=== PATIENT | female | born 1980 | race Caucasian/White ===

== ENCOUNTER 2018-06-03 18:51 | Emergency (ER) | payer OTHER ==
--- NOTE | 2018-06-03 18:59 | PDOC ---
Rapid Medical Evaluation Chief Complaint: Pain Time Seen by Provider: 06/03/18 18:57 Medical Evaluation: Allergies Allergy/AdvReac Type Severity Reaction Status Date / Time aspirin Allergy Itching Verified 02/22/18 14:54 06/03/18 18:57 I have performed a brief in person evaluation of this patient. This patient presents with a CC of: abdominal pain Pt is a 37 YO female who states that he has had RUQ pain x 1-2 days. Pt had a cholecystectomy 3 months ago. PE: Skin: Clear Lungs: Clear Heart: RRR Abd: Tender in the RUQ, no guarding. MS: Moves all extremities without difficulty. Neuro: Alert and oriented Psych: Appropriate affect I have ordered the following: abd protocol The patient will proceed to the ED for further evaluation. Discharge Disposition - Diagnosis Abdominal pain Qualifiers: Abdominal location: right upper quadrant Qualified Code(s): R10.11 - Right upper quadrant pain - Referrals Referrals: Destiney White [Primary Care Provider] - - Patient Instructions - Post Discharge Activity
[2018-06-03 19:07] VITALS: TEMP 98; BMI 24.9
[2018-06-03 19:28] LABS: BASO % 1.2 % (0-2.0); EOS % 1.5 % (0-4.5); HEMATOCRIT 40.9 % (32.4-45.2); HEMOGLOBIN 13.5 GM/dL (10.7-15.3); LYMPH % 40.4 % (8-40); MEAN CELL VOLUME 84.7 fl (80-96); MEAN PLT VOLUME 7.5 fl (7.5-11.1); MONO % 7.3 % (3.8-10.2); NEUT % 49.6 % (42.8-82.8); PLATELET COUNT 349 K/MM3 (134-434); RBC 4.83 M/mm3 (3.60-5.2); RDW 13.4 % (11.6-15.6); WHITE BLOOD COUNT 5.4 K/mm3 (4.0-10.0)
[2018-06-03 19:38] LABS: URINE APPEARANCE CLEAR; URINE BILIRUBIN NEGATIVE (<2.0 mg/dL); URINE COLOR COLORLESS; URINE GLUCOSE (UA) NEGATIVE (NEGATIVE); URINE KETONE NEGATIVE (NEGATIVE); URINE LEUK ESTERASE NEGATIVE (NEGATIVE); URINE NITRITE NEGATIVE (NEGATIVE); URINE PROTEIN NEGATIVE (NEGATIVE); URINE UROBILINOGEN NEGATIVE mg/dL (0.2-1.0)
[2018-06-03 19:39] LABS: HCG,QUALITATIVE URINE Negative
--- NOTE | 2018-06-03 20:20 | PDOC ---
History of Present Illness - General Chief Complaint: Pain Stated Complaint: RIGHT SIDE PAIN Time Seen by Provider: 06/03/18 18:57 - History of Present Illness Initial Comments: 06/03/18 20:59 The patient is a 37 year old female who presents to our ED c/o 2 day h/o abdominal pain. Pain is sharp, 10/10 initially intermittent but for the last few hours it has been constant. No association with breathing, movement, bowel movements. Denies any associated nausea/vomiting, diarrhea/constipation, dysuria /hematuria. Tolerating PO intake. Last BM this morning was watery. Notes she was evaluated by her PMD, Dr. White, earlier today and told to come to the ED for further evaluation. States she had a cholecystectomy in Summer 2017 and she has had alternating diarrhea/constipation since that time. Patient is currently on her menstrual cycle The patient denies chest pain, shortness of breath, headache and dizziness. Denies leg swelling, diaphoresis, fever, chills, diarrhea and constipation. Denies dysuria, frequency, urgency and hematuria. Allergy: ASA (Hives) Surgical: Cholecystectomy Social: denies toxic habits PMD: Dr. White As per EMR, patient was last evaluated in our ED in 01/2018 at which time she was diagnosed with cholecystitis and admitted for cholecystectomy. Past History - Past Medical History Allergies/Adverse Reactions: Allergies Allergy/AdvReac Type Severity Reaction Status Date / Time aspirin Allergy Itching Verified 06/03/18 19:00 Home Medications: Ambulatory Orders NK [No Known Home Medication] 06/03/18 Cardiac Disorders: No COPD: No DVT: No Diabetes: No GI Disorders: No Disorders: No HTN: No - Surgical History Abdominal Surgery: (Tummy tuck) Cholecystectomy: Yes - Suicide/Smoking/Psychosocial Hx Smoking History: Never smoked Have you smoked in the past 12 months: No Hx Alcohol Use: No Drug/Substance Use Hx: No Substance Use Type: None Review of Systems - Review of Systems Constitutional: Yes: Fever. No: Chills Respiratory: No: Cough, Shortness of Breath Cardiac (ROS): No: Chest Pain, Lightheadedness, Palpitations, Syncope ABD/GI: Yes: Abdominal cramping. No: Constipated, Diarrhea, Nausea, Vomiting : No: Burning, Dysuria *Physical Exam - Vital Signs Last Vital Signs Temp Pulse Resp BP Pulse Ox 98 F 81 18 152/82 99 06/03/18 18:56 06/03/18 18:56 06/03/18 18:56 06/03/18 18:56 06/03/18 18:56 - Physical Exam General Appearance: Yes: Nourished, Appropriately Dressed HEENT: positive: Normal Voice, Hearing Grossly Normal Neck: positive: Trachea midline, Supple Respiratory/Chest: positive: Lungs Clear, Normal Breath Sounds Cardiovascular: positive: S1, S2. negative: JVD Gastrointestinal/Abdominal: positive: Other (Hyperactive BS, RMQ TTP, Suprapubic TTP) Musculoskeletal: negative: CVA Tenderness (R), CVA Tenderness (L) Extremity: positive: Normal Capillary Refill, Normal Inspection Integumentary: positive: Normal Color, Dry, Warm Neurologic: positive: Fully Oriented, Alert ED Treatment Course - LABORATORY CBC & Chemistry Diagram: 06/03/18 19:19 06/03/18 20:45 - ADDITIONAL ORDERS Additional order review: Laboratory Results 06/03/18 06/03/18 19:19 19:19 Sodium Cancelled Potassium Cancelled Chloride Cancelled Carbon Dioxide Cancelled Anion Gap Cancelled BUN Cancelled Creatinine Cancelled Creat Clearance w eGFR Cancelled Random Glucose Cancelled Calcium Cancelled Total Bilirubin Cancelled AST Cancelled ALT Cancelled Alkaline Phosphatase Cancelled Total Protein Cancelled Albumin Cancelled Lipase Cancelled Urine Color Colorless Urine Appearance Clear Urine pH 6.0 Ur Specific Lutz 1.003 L Urine Protein Negative Urine Glucose (UA) Negative Urine Ketones Negative Urine Blood Negative Urine Nitrite Negative Urine Bilirubin Negative Urine Urobilinogen Negative Ur Leukocyte Esterase Negative Urine HCG, Qual Negative 06/03/18 19:19 RBC 4.83 MCV 84.7 MCHC 33.0 RDW 13.4 MPV 7.5 Neutrophils % 49.6 D Lymphocytes % 40.4 H D Monocytes % 7.3 Eosinophils % 1.5 D Basophils % 1.2 Medical Decision Making - Medical Decision Making 06/03/18 21:02 37 year old female, abdominal pain. Suprapubic, R middle quadrant tenderness. DDx includes: bilary colic (s/p goldie), pancreatitis, early appendicitis, gastritis. Will obtain belly labs, CT abdomen, Urine , UA/UC. Reassess. Urine negative No leukocytosis No electrolyte derangements. 06/04/18 01:22 CT scan negative Repeat belly exam shows mild TTP on lateral RLQ Patient offered obs admission given continuing symptoms, however states she wishes to go home. Patient given copy of return precautions, copy of CT scan and discharged home. I discussed the physical exam findings, ancillary test results and final diagnoses with the patient. I answered all of the patient's questions. The patient was satisfied with the care received and felt comfortable with the discharge plan and treatment plan. The patient will return to the Emergency Department with any new, persistent or worsening symptoms. *DC/Admit/Observation/Transfer Diagnosis at time of Disposition: Abdominal pain Qualifiers: Abdominal location: right upper quadrant Qualified Code(s): R10.11 - Right upper quadrant pain - Discharge Dispostion Disposition: HOME Condition at time of disposition: Good Decision to Admit order: No - Referrals Referrals: Destiney White [Primary Care Provider] - - Patient Instructions Printed Discharge Instructions: DI for Abdominal Pain-Adult Additional Instructions: You were evaluated today for your abdominal pain. Your labs and cat scan showed no concerning findings. At this time you are safe for discharge home. Please follow-up with your primary care doctor. We have given you a copy of your cat scan, take this with you to your doctor's appointment. Return to the Emergency Department for any new/worsening/concerning symptoms. Fuiste evaluado hoy por tu dolor abdominal. Krista anlisis de laboratorio y gianni no mostraron resultados preocupantes. En armida momento usted est seguro para el alex del hogar. Por favor palmira un seguimiento con so mdico de atencin primaria. Le hemos entregado ceferino copia de so escner de gianni, llvela con usted a la dino con so mdico. Regrese al Departamento de Emergencias para cualquier sntoma nuevo / que empeora / relacionado. Print Language: MARSHALLESE - Post Discharge Activity
[2018-06-03] MEDS ORDERED: SODIUM CHLORIDE 0.9% 500 ML INFUS.BAG IV ONE (21:10)
[2018-06-03 22:01] LABS: ALBUMIN 3.6 g/dl (3.4-5.0); ALK PHOS 68 U/L (45-117); ANION GAP 7 MMOL/L (8-16); BILIRUBIN,TOTAL 0.2 mg/dL (0.2-1); BLOOD UREA NITROGEN 12 mg/dL (7-18); CHLORIDE 105 mmol/L (98-107); CO2 27 mmol/L (21-32); CREATININE 0.8 mg/dL (0.55-1.3); GLUCOSE,RANDOM 95 mg/dL (74-106); LIPASE 135 U/L (73-393); POTASSIUM 4.1 mmol/L (3.5-5.1); SGOT/AST 28 U/L (15-37); SGPT/ALT 65 U/L (13-61); SODIUM 139 mmol/L (136-145); TOT PROT 7.2 g/dl (6.4-8.2)
[2018-06-03] MEDS ORDERED: morphine CARPU-JECT 2 MG/1 ML DISP.SYRIN IVPUSH ONE (23:41)
[2018-06-04] MEDS ORDERED: MORPHINE SULFATE 2 MG/ML VIAL ONE (00:28)
[2018-06-04 01:35] VITALS: BP 138/76; PULSE 76
--- NOTE | 2018-06-04 01:46 | PDOC ---
Attending Attestation - Resident Resident Name: Allison Boucher - ED Attending Attestation I have performed the following: I have examined & evaluated the patient, The case was reviewed & discussed with the resident, I agree w/resident's findings & plan, Exceptions are as noted - HPI HPI: 06/04/18 01:40 The patient is a 37 year old female, with no significant past medical history, who presents to the emergency department with 2 days of RUQ abdominal pain. She describes her pain as a 6/10, sharp, right sided pain radiating around to her back. She saw her primary care provider today and since her exam the pain has become constant prompting her to come to the ED. She states the pain is different from when she had her GB removed. Pt currently on her period, denies vaginal DC. She is sexually active only with her . She denies any worsening or alleviating factors. She denies recent fevers, chills, headache or dizziness. She denies recent nausea, vomit, diarrhea or constipation. She denies recent dysuria, frequency, urgency or hematuria. She denies recent chest pain or shortness of breath. Denies trauma. Allergies: NKA Past surgical history: Cholecystectomy (01/2018). Social history: No reported alcohol, drug, or cigarette use. PCP: Dr. White - Physicial Exam PE: 06/04/18 01:43 GENERAL: Awake, alert, and fully oriented, in no acute distress. Resting comfortably on stretcher reading her phone EYES: PERRLA, EOMI, sclera anicteric, conjunctiva clear ENT: Oropharynx clear without exudates. Moist mucosa NECK: Normal ROM, supple LUNGS: Breath sounds equal, clear to auscultation bilaterally. No wheezes, and no crackles HEART: Regular rate and rhythm, normal S1 and S2, no murmurs, rubs or gallops ABDOMEN: Soft, nontender, normoactive bowel sounds. No guarding, no rebound. No masses. Neg garcia's sign. No CVAT EXTREMITIES: Normal range of motion, no edema. No clubbing or cyanosis. No cords , erythema, or tenderness NEUROLOGICAL: Normal speech, cranial nerves intact, 5/5 strength in all 4 extremities, normal sensation to light touch in all 4 extremities, normal gait SKIN: Warm, Dry, normal turgor, no rashes or lesions noted over areas of pain - Medical Decision Making 06/04/18 01:47 37yo F hx cholecystectomy, ?appendectomy (pt can not remember) p/w 2 days of RUQ pain. Vitals wnl. Pt is well appearing, with no ttp on abd exam. Given report of pain, and initial tenderness on Dr. Boucher's exam, a CT was ordered to look for evidence of retained stone or other acute pathology. CT negative for acute pathology. Labs and UA wnl. UPT neg. Pt is very well appearing with rpt abd exam benign. Tolerating PO. She wishes to go home. REturn precautions given, pt to see her PMD within 1-2 days. I discussed the physical exam findings, ancillary test results and final diagnoses with the patient. I answered all of the patient's questions. The patient was satisfied with the care received and felt comfortable with the discharge plan and treatment plan. The patient will call their primary care physician within 24 hours to arrange follow-up and will return to the Emergency Department with any new, persistent or worsening symptoms.
== END 2018-06-04 01:35 | disposition home or self-care (01) ==
LOC: JER 18:51
PROC: 3E033NZ Introduction of Analgesics, Hypnotics, Sedatives into Peripheral Vein, Percutaneous Approach (ICD-10-PCS; principal; 2018-06-03)
DX: R10.11 Right upper quadrant pain (principal); Z90.49 Acquired absence of other specified parts of digestive tract
CPT/HCPCS: 36415; 74176-TC; 80053; 81003; 83690; 84703; 85025; 96374; 99283-25

== ENCOUNTER 2019-02-13 13:33 | Emergency (ER) | payer OTHER ==
--- NOTE | 2019-02-13 13:47 | PDOC ---
Rapid Medical Evaluation Time Seen by Provider: 02/13/19 13:42 Medical Evaluation: Allergies Allergy/AdvReac Type Severity Reaction Status Date / Time aspirin Allergy Itching Verified 06/03/18 19:00 02/13/19 13:43 I have performed a brief in-person evaluation of this patient The patient presents with a chief complaint of:GIL and abd pain Pertinent physical exam findings:pastora uncomfortable I have ordered the following:labs The patient will proceed to the ED for further evaluation. Discharge Disposition - Diagnosis Headache Qualifiers: Headache type: unspecified Headache chronicity pattern: unspecified pattern Intractability: not intractable Qualified Code(s): R51 - Headache Abdominal pain Qualifiers: Abdominal location: unspecified location Qualified Code(s): R10.9 - Unspecified abdominal pain - Discharge Dispostion Disposition: HOME Condition at time of disposition: Good - Referrals Referrals: Vaughn Solorio MD [Staff Physician] - Destiney White [Primary Care Provider] - - Patient Instructions Printed Discharge Instructions: DI for Migraine, DI for Headache Additional Instructions: you were seen for your headache. please use tylenol as prescribed for pain relief. please see the neurologist referred to you within 1 week for follow up care and management. thank you. please return if you have fevers, confusion, and worsening headaches with unsteady walking. thank you. - Post Discharge Activity
[2019-02-13 13:50] VITALS: BP 135/80; PULSE 70; TEMP 97.5; BMI 28.3
[2019-02-13] MEDS ORDERED: KETOROLAC TROMETHAMINE 30 MG/1 ML VIAL IVPUSH ONE (15:27)
[2019-02-13] MEDS ORDERED: METOCLOPRAMIDE HCL INJECTION 10 MG/2 ML VIAL IVPB ONE (15:27)
--- NOTE | 2019-02-13 15:43 | PDOC ---
History of Present Illness - General Chief Complaint: Pain Stated Complaint: HEADACHE Time Seen by Provider: 02/13/19 13:42 History Source: Patient Exam Limitations: No Limitations Past History - Past Medical History Allergies/Adverse Reactions: Allergies Allergy/AdvReac Type Severity Reaction Status Date / Time aspirin Allergy Itching Verified 06/03/18 19:00 Home Medications: Ambulatory Orders NK [No Known Home Medication] 06/03/18 Cardiac Disorders: No COPD: No DVT: No Diabetes: No GI Disorders: No Disorders: No HTN: No - Surgical History Abdominal Surgery: (Tummy tuck) Cholecystectomy: Yes - Suicide/Smoking/Psychosocial Hx Smoking History: Never smoked Have you smoked in the past 12 months: No Hx Alcohol Use: No Drug/Substance Use Hx: No Substance Use Type: None *Physical Exam - Vital Signs Last Vital Signs Temp Pulse Resp BP Pulse Ox 97.5 F L 70 20 135/80 100 02/13/19 13:44 02/13/19 13:44 02/13/19 13:44 02/13/19 13:44 02/13/19 13:44 ED Treatment Course - LABORATORY CBC & Chemistry Diagram: 02/13/19 16:10 02/13/19 16:10 *DC/Admit/Observation/Transfer Diagnosis at time of Disposition: Headache Qualifiers: Headache type: unspecified Headache chronicity pattern: unspecified pattern Intractability: not intractable Qualified Code(s): R51 - Headache Abdominal pain Qualifiers: Abdominal location: unspecified location Qualified Code(s): R10.9 - Unspecified abdominal pain - Discharge Dispostion Disposition: HOME Decision to Admit order: No - Referrals Referrals: Destiney White [Primary Care Provider] - Vaughn Solorio MD [Staff Physician] - - Patient Instructions Printed Discharge Instructions: DI for Migraine, DI for Headache Additional Instructions: you were seen for your headache. please use tylenol as prescribed for pain relief. please see the neurologist referred to you within 1 week for follow up care and management. thank you. please return if you have fevers, confusion, and worsening headaches with unsteady walking. thank you. - Post Discharge Activity
--- NOTE | 2019-02-13 15:55 | PDOC ---
Documentation entered by Bonita Lugo SCRIBE, acting as scribe for April Colon MD. April Colon MD: This documentation has been prepared by the Brittney valentin Brenda, SCRIBE, under my direction and personally reviewed by me in its entirety. I confirm that the documentation accurately reflects all work, treatment, procedures, and medical decision making performed by me. Attending Attestation - Resident Resident Name: Aba Raya - ED Attending Attestation I have performed the following: I have examined & evaluated the patient, The case was reviewed & discussed with the resident, I agree w/resident's findings & plan, Exceptions are as noted - HPI HPI: 02/13/19 15:26 The patient is a 38 year old female, with a significant PMH of migraines, who presents to the emergency department with a consistent headache and abdominal pain. As per patient the headache could be due to stress, she notes that the headache is familiar and of the same quality as migraines. The patient also complains of bilateral lower quadrant pain. She notes that her last menstrual period ended on February 03, but has noticed some spotting. Of note, 18 year old son is currently in the ER as well. The patient denies chest pain, shortness of breath, headache and dizziness. Denies fever, chills, nausea, vomiting, diarrhea and constipation. Denies dysuria, frequency, urgency. Allergies: Aspirin Past surgical history: Not reported Social history: Not reported PCP: Destiney Rodney - Physicial Exam PE: GENERAL: Awake, alert, and fully oriented, in no acute distress HEAD: No signs of trauma EYES: PERRLA, EOMI, sclera anicteric, conjunctiva clear ENT: Auricles normal inspection, hearing grossly normal, nares patent, oropharynx clear without exudates. Moist mucosa NECK: Normal ROM, supple, no lymphadenopathy, JVD, or masses LUNGS: Breath sounds equal, clear to auscultation bilaterally. No wheezes, and no crackles HEART: Regular rate and rhythm, normal S1 and S2, no murmurs, rubs or gallops ABDOMEN: Soft, nontender, normoactive bowel sounds. No guarding, no rebound. No masses EXTREMITIES: Normal range of motion, no edema. No clubbing or cyanosis. No cords, erythema, or tenderness NEUROLOGICAL: Cranial nerves II through XII grossly intact. Normal speech, normal gait. Motor and sensation intact SKIN: Warm, dry, normal turgor, no rashes or lesions noted. - Medical Decision Making Pt with migraine headache, consistent with prior headaches. No red flags, no advanced imaging indicated at this time. Will treat with toradol and reglan. DC when improved.
[2019-02-13 16:18] LABS: URINE APPEARANCE CLEAR; URINE BILIRUBIN NEGATIVE (NEGATIVE); URINE COLOR YELLOW; URINE GLUCOSE (UA) NEGATIVE (NEGATIVE); URINE KETONE NEGATIVE (NEGATIVE); URINE LEUK ESTERASE NEGATIVE (NEGATIVE); URINE NITRITE NEGATIVE (NEGATIVE); URINE PROTEIN NEGATIVE (NEGATIVE); URINE UROBILINOGEN 0.2 mg/dL (0.2-1.0)
[2019-02-13 16:18] LABS: BASO % 0.7 % (0-2.0); EOS % 0.7 % (0-4.5); HEMATOCRIT 40.9 % (32.4-45.2); HEMOGLOBIN 13.4 GM/dL (10.7-15.3); LYMPH % 29.5 % (8-40); MCHC 32.8 g/dl (32.0-36.0); MEAN CELL VOLUME 85.5 fl (80-96); MEAN PLT VOLUME 7.2 fl (7.5-11.1); MONO % 7.8 % (3.8-10.2); NEUT % 61.3 % (42.8-82.8); PLATELET COUNT 328 K/MM3 (134-434); RBC 4.78 M/mm3 (3.60-5.2); RDW 14.6 % (11.6-15.6); WHITE BLOOD COUNT 5.5 K/mm3 (4.0-10.0)
[2019-02-13 16:49] LABS: ALBUMIN 3.8 g/dl (3.4-5.0); ALK PHOS 66 U/L (45-117); ANION GAP 4 MMOL/L (8-16); BILIRUBIN,TOTAL 0.5 mg/dL (0.2-1); CALCIUM 9.2 mg/dL (8.5-10.1); CHLORIDE 106 mmol/L (98-107); CO2 29 mmol/L (21-32); CREATININE 0.8 mg/dL (0.55-1.3); GLUCOSE,RANDOM 95 mg/dL (74-106); POTASSIUM 4.7 mmol/L (3.5-5.1); SGOT/AST 22 U/L (15-37); SGPT/ALT 42 U/L (13-61); SODIUM 139 mmol/L (136-145); TOT PROT 7.5 g/dl (6.4-8.2)
[2019-02-13] MEDS ORDERED: METOCLOPRAMIDE HCL INJECTION 10 MG/2 ML VIAL ONE (16:51)
[2019-02-13] MEDS ORDERED: KETOROLAC TROMETHAMINE 30 MG/1 ML VIAL ONE (16:51)
== END 2019-02-13 18:44 | disposition home or self-care (01) ==
LOC: JER 13:33
PROC: 3E033GC Introduction of Other Therapeutic Substance into Peripheral Vein, Percutaneous Approach (ICD-10-PCS; principal; 2019-02-13)
PROC: 3E0333Z Introduction of Anti-inflammatory into Peripheral Vein, Percutaneous Approach (ICD-10-PCS; 2019-02-13)
DX: G43.909 Migraine, unspecified, not intractable, without status migrainosus (principal)
CPT/HCPCS: 36415; 80053; 81003; 84702; 84703; 85025; 96374; 96375; 99281-25

== ENCOUNTER 2019-03-22 16:14 | Emergency (ER) | payer OTHER ==
[2019-03-22 16:45] VITALS: BP 148/82; PULSE 78; TEMP 98.9; BMI 24.0
[2019-03-22] MEDS ORDERED: ONDANSETRON 4 MG/2 ML VIAL IVPUSH ONE (17:14)
[2019-03-22] MEDS ORDERED: SODIUM CHLORIDE 0.9% 500 ML INFUS.BAG IV ONE (17:14)
[2019-03-22] MEDS ORDERED: METOCLOPRAMIDE HCL INJECTION 10 MG/2 ML VIAL IVPB ONE (17:17)
--- NOTE | 2019-03-22 17:26 | PDOC ---
History of Present Illness - General Chief Complaint: Vaginal Bleeding Stated Complaint: ABD PAIN Time Seen by Provider: 03/22/19 16:59 History Source: Patient, Spouse Exam Limitations: Language Barrier (mauritanian) - History of Present Illness Initial Comments: 03/22/19 17:20 Kira Sanchez is a 38y previously healthy F w suprapubic pain and vaginal bleeding. Pain came on suddenly last night. Associated spotting, nausea and 2x non bloody vomiting today. Today noted bright red blood w clots in toilet upon arrival in ED at 1600. Took total 2g tylenol today without relief. Denies fever, headache, chest pain, SOB, bowl mvmt changes. 3d ago tested positive for . Approx 50d since last menstrual period. . 1st full term emergency d/t umbilical cord wrapped around neck. 2nd complicated by similar AB pain and spotting. No OBGYN doctor Past History - Past Medical History Allergies/Adverse Reactions: Allergies Allergy/AdvReac Type Severity Reaction Status Date / Time aspirin Allergy Itching Verified 03/22/19 16:46 Home Medications: Ambulatory Orders NK [No Known Home Medication] 06/03/18 Cardiac Disorders: No COPD: No DVT: No Diabetes: No GI Disorders: No Disorders: No HTN: No - Surgical History Abdominal Surgery: (Tumyesenia de la rosack) Cholecystectomy: Yes - Suicide/Smoking/Psychosocial Hx Smoking History: Never smoked Have you smoked in the past 12 months: No Hx Alcohol Use: No Drug/Substance Use Hx: No Substance Use Type: None Review of Systems - Review of Systems Constitutional: No: Chills, Fever HEENTM: No: Eye Pain, Ear Pain, Nose Pain, Throat Pain, Mouth Pain Respiratory: No: Cough, Shortness of Breath, Wheezing Cardiac (ROS): No: Chest Pain, Palpitations, Syncope, Chest Tightness ABD/GI: Yes: Nausea, Vomiting. No: Abdominal Distended, Constipated, Diarrhea : Yes: Hematuria. No: Burning, Dysuria, Discharge, Flank Pain, Incontinence Musculoskeletal: No: Back Pain, Joint Pain, Muscle Pain, Muscle Weakness Integumentary: No: Bruising, Flushing, Lesions, Lumps Neurological: No: Headache, Numbness, Paresthesia, Seizure, Tingling, Tremors Psychiatric: No: Anxiety, Depression Endocrine: No: Excessive Sweating, Flushing, Intolerance to Cold, Intolerance to Heat Hematologic/Lymphatic: No: Anemia, Blood Clots, Easy Bleeding *Physical Exam - Vital Signs Last Vital Signs Temp Pulse Resp BP Pulse Ox 98.9 F 78 18 148/82 97 03/22/19 16:15 03/22/19 16:15 03/22/19 16:15 03/22/19 16:15 03/22/19 16:15 - Physical Exam General Appearance: Yes: Nourished, Appropriately Dressed, Moderate Distress ( discomfort ) HEENT: positive: EOMI, CHAD, Normal Voice, Hearing Grossly Normal. negative: Pale Conjunctivae, Scleral Icterus (R), Scleral Icterus (L), Nasal Congestion, Rhinorrhea Respiratory/Chest: positive: Lungs Clear, Normal Breath Sounds. negative: Chest Tender, Respiratory Distress, Crackles, Rales, Rhonchi, Stridor, Wheezing Cardiovascular: positive: Regular Rhythm, Regular Rate, S1, S2. negative: Edema , Murmur Female Pelvic Exam: positive: normal external exam, cervical os closed, normal adnexa, vaginal bleeding (gross blood in vaginal vault, no clots). negative: CMT, discharge, lesions, adnexal tenderness Gastrointestinal/Abdominal: positive: Normal Bowel Sounds, Tender (moderate tenderness to palpation suprapubic ), Flat, Soft. negative: Organomegaly, Distended, Guarding, Rebound, Hernia, Mass Musculoskeletal: positive: Normal Inspection. negative: CVA Tenderness (R), CVA Tenderness (L) Integumentary: positive: Normal Color. negative: Petechiae, Rash, Ecchymosis, Bruising Neurologic: positive: Fully Oriented, Alert, Normal Mood/Affect, Normal Response , Respond to painful stimul. negative: Sensory Deficit, Confused, Disoriented ED Treatment Course - LABORATORY CBC & Chemistry Diagram: 03/22/19 17:30 03/22/19 17:30 - RADIOLOGY Radiology Studies Ordered: Category Date Time Status <14WKS US [US] Stat Ultrasound 03/22/19 17:19 Ordered Medical Decision Making - Medical Decision Making 03/22/19 17:26 CBC CMP HCG UA coags T&S pelvic exam shows gross blood in vaginal vault, no clots, closed cervical os, no cervical motion tenderness or adnexal tenderness Given 1L NS, zofran for nausea, reglan/benadryl for pain CBC, coags normal. UA shows 3+ blood no UTI beta HCG 97 Pending US read Kira Sanchez is a 38y previously healthy F w suprapubic pain and vaginal bleeding. Likely threatened vs complete in setting of vaginal bleeding, suprapubic blood, low beta HCG 97 w 50d since LMP. Consider threatened vs viable intrauterine vs ectopic based on ultrasound read. Pelvic exam showed gross blood in vaginal vault, no clots, closed cervical os, no cervical motion tenderness or adnexal tenderness. No UTI on UA. Unlikely kidney stone or diverticulitis. Given 1L NS, zofran for nausea, reglan/benadryl for pain. Ultrasound read pending. Repeat CBC trend Hgb 815p Dispo pending US read. Signed out to the night team *DC/Admit/Observation/Transfer Diagnosis at time of Disposition: Suprapubic abdominal pain, Vaginal bleeding before 22 weeks gestation Qualifiers: Weeks of gestation: less than 8 weeks Qualified Code(s): Z3A.01 - Less than 8 weeks gestation of - Discharge Dispostion Condition at time of disposition: Fair - Referrals Referrals: Destiney White [Primary Care Provider] - - Patient Instructions - Post Discharge Activity
[2019-03-22] MEDS ORDERED: ONDANSETRON 4 MG/2 ML VIAL ONE (17:44)
[2019-03-22] MEDS ORDERED: METOCLOPRAMIDE HCL INJECTION 10 MG/2 ML VIAL ONE (17:44)
[2019-03-22 17:47] LABS: BASO % 0.8 % (0-2.0); HEMATOCRIT 43.1 % (32.4-45.2); HEMOGLOBIN 14.1 GM/dL (10.7-15.3); MCH 27.9 pg (25.7-33.7); MCHC 32.7 g/dl (32.0-36.0); MEAN CELL VOLUME 85.4 fl (80-96); MEAN PLT VOLUME 7.2 fl (7.5-11.1); MONO % 8.6 % (3.8-10.2); NEUT % 65.6 % (42.8-82.8); PLATELET COUNT 355 K/MM3 (134-434); RBC 5.05 M/mm3 (3.60-5.2); RDW 13.9 % (11.6-15.6); WHITE BLOOD COUNT 7.9 K/mm3 (4.0-10.0)
[2019-03-22 17:49] LABS: HYALINE CASTS 1 /lpf (0-8); PH,URINE 5.5 (5.0-8.0); URINE APPEARANCE CLEAR; URINE BILIRUBIN NEGATIVE (NEGATIVE); URINE COLOR YELLOW; URINE GLUCOSE (UA) NEGATIVE (NEGATIVE); URINE KETONE NEGATIVE (NEGATIVE); URINE LEUK ESTERASE NEGATIVE (NEGATIVE); URINE NITRITE NEGATIVE (NEGATIVE); URINE PROTEIN 1+ (NEGATIVE); URINE UROBILINOGEN 0.2 mg/dL (0.2-1.0); URINE WBC 1 /hpf (0-5)
[2019-03-22 18:01] LABS: INR 0.96 (0.83-1.09); PROTHROMBIN TIME (PATIENT) 11.3 SEC (9.7-13.0)
[2019-03-22 18:15] LABS: ALBUMIN 3.8 g/dl (3.4-5.0); BILIRUBIN,TOTAL 0.4 mg/dL (0.2-1); BLOOD UREA NITROGEN 9.1 mg/dL (7-18); CALCIUM 9.1 mg/dL (8.5-10.1); CREATININE 0.9 mg/dL (0.55-1.3); POTASSIUM 4.4 mmol/L (3.5-5.1)
[2019-03-22 18:35] LABS: URINE RBC 25.3 /hpf (0-4); YEAST NEGATIVE (NEGATIVE)
--- NOTE | 2019-03-22 18:59 | PDOC ---
Documentation entered by Daniela Ontiveros SCRIBE, acting as scribe for La Nena Toure MD. La Nena Toure MD: This documentation has been prepared by the cubaibe, Daniela Ontiveros SCRIBE, under my direction and personally reviewed by me in its entirety. I confirm that the documentation accurately reflects all work, treatment, procedures, and medical decision making performed by me. Attending Attestation - Resident Resident Name: Darshan Eldridge - ED Attending Attestation I have performed the following: I have examined & evaluated the patient, The case was reviewed & discussed with the resident, I agree w/resident's findings & plan, Exceptions are as noted - HPI HPI: 03/22/19 18:20 The patient is a 38-year-old female, currently (7 weeks based on LMP) with no reported past medical history presents to the emergency department with a 1-day history of vaginal spotting, which progressed into heavy vaginal bleeding with clot passing while at the ER. The patient reports associated symptoms of nausea, x2 episodes of NBNB vomiting, and midline lower abdominal pain. Denies prior or miscarriage. Denies fevers, chills, cp, sob, headahce, focal weakness/numbness, LE edema, rashes, urinary sxs. Allergies: ASA Social history: Denies history of alcohol, tobacco and recreational drug use. Surgical history: Abdominal surgery and cholecystectomy PCP: Dr. White. - Physicial Exam PE: 03/22/19 18:20 GENERAL: Awake, alert, and fully oriented, in no acute distress EYES: PERRLA, EOMI, sclera anicteric, conjunctiva clear ENT: Oropharynx clear without exudates. Moist mucosa NECK: Normal ROM, supple, no lymphadenopathy, JVD, or masses LUNGS: Breath sounds equal, clear to auscultation bilaterally. No wheezes, and no crackles HEART: Regular rate and rhythm, normal S1 and S2, no murmurs, rubs or gallops ABDOMEN: Soft, nontender, normoactive bowel sounds. No guarding, no rebound. No masses ; As per Dr. Pond's note EXTREMITIES: Normal range of motion, no edema. No clubbing or cyanosis. No cords , erythema, or tenderness BACK: No midline spinal tenderness in cervical/thoracic/lumbar region NEUROLOGICAL: Normal speech, cranial nerves intact, equal strength and sensation b/l SKIN: Warm, Dry, normal turgor, no rashes or lesions noted. - Medical Decision Making 03/22/19 17:56 38yo F approx 7 wks preg by dates presents to the ED with vaginal bleeding, initially spotting but now heaving bleeding with clots in the ED Initial vitals with elevated BP, will rpt Exam with closed os, moderate dark red blood in vault, no clots, no CMT or adnexal ttp Concern for spontaneous Pt with no OB care yet, does not have OB Plan for labs including BHCG, type and screen, as well as UA, TVUS 03/22/19 18:57 Labs wnl, hgb 14 UA with blood, likely 2/2 vag bleeding T&S+ TVUS pending Case signed out to Dr. Thomas for f/u TVUS, management/dispo
--- NOTE | 2019-03-22 19:14 | PDOC ---
*Physical Exam - Vital Signs Last Vital Signs Temp Pulse Resp BP Pulse Ox 98.9 F 78 18 148/82 97 03/22/19 16:15 03/22/19 16:15 03/22/19 16:15 03/22/19 16:15 03/22/19 16:15 ED Treatment Course - LABORATORY CBC & Chemistry Diagram: 03/22/19 17:30 03/22/19 17:30 - ADDITIONAL ORDERS Additional order review: Laboratory Results 03/22/19 03/22/19 03/22/19 17:30 17:30 17:30 PT with INR 11.30 INR 0.96 PTT (Actin FS) Sodium Potassium Chloride Carbon Dioxide Anion Gap BUN Creatinine Est GFR (CKD-EPI)AfAm Est GFR (CKD-EPI)NonAf Random Glucose Calcium Total Bilirubin AST ALT Alkaline Phosphatase Total Protein Albumin Beta HCG, Quant Urine Color Yellow Urine Appearance Clear Urine pH 5.5 Ur Specific [place] 1.003 L Urine Protein 1+ H Urine Glucose (UA) Negative Urine Ketones Negative Urine Blood 3+ H Urine Nitrite Negative Urine Bilirubin Negative Urine Urobilinogen 0.2 Ur Leukocyte Esterase Negative Urine WBC (Auto) 1 Urine RBC (Auto) 25.3 Urine Casts (Auto) 1 U Epithel Cells (Auto) 1.0 Urine Bacteria (Auto) 12.0 Urine Yeast (Auto) Negative Blood Type A POSITIVE Antibody Screen Negative 03/22/19 03/22/19 03/22/19 17:30 17:30 17:30 PT with INR INR PTT (Actin FS) 32.7 Sodium 139 Potassium 4.4 Chloride 107 Carbon Dioxide 27 Anion Gap 6 L BUN 9.1 Creatinine 0.9 Est GFR (CKD-EPI)AfAm 93.35 Est GFR (CKD-EPI)NonAf 80.54 Random Glucose 82 Calcium 9.1 Total Bilirubin 0.4 AST 27 ALT 54 Alkaline Phosphatase 75 Total Protein 8.0 Albumin 3.8 Beta HCG, Quant 97.3 Urine Color Urine Appearance Urine pH Ur Specific [place] Urine Protein Urine Glucose (UA) Urine Ketones Urine Blood Urine Nitrite Urine Bilirubin Urine Urobilinogen Ur Leukocyte Esterase Urine WBC (Auto) Urine RBC (Auto) Urine Casts (Auto) U Epithel Cells (Auto) Urine Bacteria (Auto) Urine Yeast (Auto) Blood Type Antibody Screen 03/22/19 17:30 RBC 5.05 MCV 85.4 MCHC 32.7 RDW 13.9 MPV 7.2 L Neutrophils % 65.6 Lymphocytes % 24.0 Monocytes % 8.6 Eosinophils % 1.0 Basophils % 0.8 - Medications Given in the ED: ED Medications Discontinued Medications Generic Name Dose Route Start Last Admin Trade Name Shanique PRN Reason Stop Dose Admin Diphenhydramine HCl 25 mg 03/22/19 17:17 03/22/19 17:55 Benadryl Injection - IVPB 03/22/19 17:18 25 mg ONCE ONE Administration Metoclopramide HCl 10 mg 03/22/19 17:17 03/22/19 17:55 Reglan Injection - IVPB 03/22/19 17:18 10 mg ONCE ONE Administration Ondansetron HCl 4 mg 03/22/19 17:14 03/22/19 17:55 Zofran Injection IVPUSH 03/22/19 17:15 4 mg NOW ONE Administration Sodium Chloride 1,000 ml 03/22/19 17:14 03/22/19 17:55 Normal Saline - IV 03/22/19 17:15 1,000 ml ONCE ONE Administration Medical Decision Making - Medical Decision Making 03/22/19 19:13 Patient signed out resident Dr. Eldridge In short patient is w suprapubic pain and vaginal bleeding. pending TVUS d/c for rpt beta 48 hours *DC/Admit/Observation/Transfer Diagnosis at time of Disposition: Suprapubic abdominal pain, Vaginal bleeding before 22 weeks gestation Qualifiers: Weeks of gestation: less than 8 weeks Qualified Code(s): Z3A.01 - Less than 8 weeks gestation of - Discharge Dispostion Disposition: HOME Condition at time of disposition: Fair Decision to Admit order: No - Referrals Referrals: Destiney White [Primary Care Provider] - Jose Fontenot MD [Staff Physician] - - Patient Instructions Printed Discharge Instructions: DI for Vaginal Bleeding During Additional Instructions: You were seen in the ED for complaints of vaginal bleeding in Your labs tests show a low blood test for the date of your last normal menstrual period Your ultrasound was too early to show a . You should return to the ED or your Family Doctor in 2 days for repeat blood test and imaging. Return to the ED immediately if you experience worsening abdominal pain, worsening vaginal bleeding, nausea, vomiting or fever. La vieron en el servicio de urgencias por quejas de sangrado vaginal en el embarazo. Las pruebas de laboratorio muestran un anlisis de sapna bajo en el embarazo para la fecha de jenkins ltimo perodo menstrual normal Jenkins ultrasonido fue demasiado temprano para mostrar un embarazo. Debe regresar al servicio de urgencias o a jenkins mdico de vijay en 2 anguiano para repetir los anlisis de sapna y las imgenes. Regrese al servicio de urgencias de inmediato si experimenta un empeoramiento del dolor abdominal, empeoramiento del sangrado vaginal, nuseas, vmitos o fiebre. Print Language: UPPER SORBIAN - Post Discharge Activity
== END 2019-03-22 20:42 | disposition home or self-care (01) ==
LOC: JER 16:14
PROC: 3E033GC Introduction of Other Therapeutic Substance into Peripheral Vein, Percutaneous Approach (ICD-10-PCS; principal; 2019-03-22)
PROC: 3E033GC Introduction of Other Therapeutic Substance into Peripheral Vein, Percutaneous Approach (ICD-10-PCS; 2019-03-22)
PROC: 3E033GC Introduction of Other Therapeutic Substance into Peripheral Vein, Percutaneous Approach (ICD-10-PCS; 2019-03-22)
DX: O26.891 Other specified pregnancy related conditions, first trimester (principal); O20.8 Other hemorrhage in early pregnancy; Z3A.01 Less than 8 weeks gestation of pregnancy
CPT/HCPCS: 36415; 76801-TC; 80053; 81003; 84702; 85025; 85610; 85730; 86850; 86900; 86901; 87086; 96374; 96375; 99283-25

== ENCOUNTER 2019-06-05 15:12 | Emergency (ER) | payer OTHER ==
[2019-06-05 15:39] VITALS: BP 146/86; PULSE 84; TEMP 98; BMI 24.0
--- NOTE | 2019-06-05 15:39 | PDOC ---
Rapid Medical Evaluation Medical Evaluation: Allergies Allergy/AdvReac Type Severity Reaction Status Date / Time aspirin Allergy Itching Verified 03/22/19 16:46 I have performed a brief in-person evaluation of this patient. The patient presents with a chief complaint of: c/o L eye pain, redness, tearing , FB sensation, photophobia from yesterday; was using glue to put on fake eyelash Pertinent physical exam findings: +R eye injected, JARRET BONILLA I have ordered the following: Nothing The patient will proceed to the ED for further evaluation. 06/05/19 15:35
[2019-06-05] MEDS ORDERED: FLUORESCEIN NA 1 EA STRIP OD ONE (16:41)
[2019-06-05] MEDS ORDERED: TETRACAINE 0.5% HCL 0.6ML DROPPER.BOTTLE OD ONE (16:41)
[2019-06-05] MEDS ORDERED: TETRACAINE 0.5% OPHTH SOLN 2 ML BOTTLE ONE (16:43)
--- NOTE | 2019-06-05 16:51 | PDOC ---
History of Present Illness - General Chief Complaint: Eye Problem Stated Complaint: HURT EYE Time Seen by Provider: 06/05/19 15:35 - History of Present Illness Initial Comments: 06/05/19 16:46 CHIEF COMPLAINT: eye problem HISTORY OF PRESENT ILLNESS: 38 yo F presents to [facility] with pain and irritation to left eye since yesterday. Patient states she is unsure what caused the irritation and redness to her eye but she believes it started from the glue from her eyelashes. No recent travel or sick contacts. PAST MEDICAL HISTORY: Denies past medical history FAMILY HISTORY: Denies SOCIAL HISTORY: Denies tobacco, alcohol, illicit drug use. SURGICAL HISTORY: Denies ALLERGIES: No known drug allergies REVIEW OF SYSTEMS General/Constitutional: Denies fever or chills. Denies weakness, weight change. HEENT: Pain, redness, and irritation to L eye. Denies change in vision. Denies ear pain or discharge. Denies sore throat. Cardiovascular: Denies chest pain or shortness of breath. Respiratory: Denies cough, wheezing, or hemoptysis. Gastrointestinal: Denies nausea, vomiting, diarrhea or constipation. Denies rectal bleeding. Genitourinary: Denies dysuria, frequency, or change in urination. Musculoskeletal: Denies joint or muscle swelling or pain. Denies neck or back pain. Skin and breasts: Denies rash or easy bruising. Neurologic: Denies headache, vertigo, loss of consciousness, or loss of sensation. Psychiatric: Denies depression or anxiety. PHYSICAL EXAM General Appearance: Well-appearing, appropriately dressed. No apparent distress , no intoxication. HEENT: Injected left eye, tearing, +photophobia. No globe rupture, no scleral icterus. EOMI, PERRLA, normal ENT inspection, normal voice, TMs normal, pharynx normal. No conjunctival pallor. Neck: Supple. Trachea midline. No tenderness, rigidity, carotid bruit, stridor , lymphadenopathy, or thyromegaly. Respiratory/Chest: Lungs CTAB. No shortness of breath, chest tenderness, respiratory distress, accessory muscle use. No crackles, rales, rhonchi, stridor , wheezing, dullness Cardiovascular: RRR. S1, S2. No JVD, murmur, bradycardia, tachycardia. Vascular Pulses: Dorsalis-Pedis (R): 2+, Dorsalis-Pedis (L): 2+ Gastrointestinal/Abdominal: Normal bowel sounds. Abdomen soft, non-distended. No tenderness or rebound tenderness. No organomegaly, pulsatile mass, guarding , hernia, hepatomegaly, splenomegaly. Lymphatic: No adenopathy, tenderness. Musculoskeletal/Extremities: Normal inspection. FROM of all extremities, normal capillary refill. Pelvis Stable. No CVA tenderness. No tenderness to extremities, pedal edema, swelling, erythema or deformity. Integumentary: Appropriate color, dry, warm. No cyanosis, erythema, jaundice or rash Neurologic: public safety officer II-XII intact. Fully oriented, alert. Appropriate mood/affect. Motor strength 5/5. No appreciable EOM palsy, facial droop or sensory deficit. Past History - Past Medical History Allergies/Adverse Reactions: Allergies Allergy/AdvReac Type Severity Reaction Status Date / Time aspirin Allergy Itching Verified 06/05/19 15:39 Home Medications: Ambulatory Orders Erythromycin 0.5% Eye Ointment [Erythromycin 0.5% Eye Ointment -] 1 applic OS QID #1 tube 06/05/19 Cardiac Disorders: No COPD: No DVT: No Diabetes: No GI Disorders: No Disorders: No HTN: No - Surgical History Abdominal Surgery: (Betzaida min) Cholecystectomy: Yes - Psycho Social/Smoking Cessation Hx Smoking History: Never smoked Have you smoked in the past 12 months: No Hx Alcohol Use: No Drug/Substance Use Hx: No Substance Use Type: None *Physical Exam - Vital Signs Last Vital Signs Temp Pulse Resp BP Pulse Ox 98 F 84 18 146/86 99 06/05/19 15:35 06/05/19 15:35 06/05/19 15:35 06/05/19 15:35 06/05/19 15:35 Medical Decision Making - Medical Decision Making 06/05/19 16:48 38 yo F presents to [facility] with pain and irritation to left eye since yesterday. Fluorescein stain reveals 2mm corneal abrasion over pupil. Patient denies wearing contacts. -erythromycin ointment. Advised patient to take medication as prescribed and follow up with ophthalmology within 5 days. Advised patient of signs and symptoms for return to ED. Patient verbalized understanding and agrees to plan. Discharge - Discharge Information Problems reviewed: Yes Clinical Impression/Diagnosis: Abrasion of cornea, left Qualifiers: Encounter type: initial encounter Qualified Code(s): S05.02XA - Injury of conjunctiva and corneal abrasion without foreign body, left eye, initial encounter Condition: Stable Disposition: HOME - Admission No - Additional Discharge Information Prescriptions: Erythromycin 0.5% Eye Ointment [Erythromycin 0.5% Eye Ointment -] 1 applic OS QID #1 tube - Follow up/Referral Referrals: Destiney White [Primary Care Provider] - Castillo Lara MD [Staff Physician] - - Patient Discharge Instructions Patient Printed Discharge Instructions: DI for Corneal Abrasion Additional Instructions: Please use medication as prescribed. Follow up with ophthalmology in 5 days for continued monitoring. If you develop any worsening symptoms, please return to the ER. Print Language: NEPALI - Post Discharge Activity
== END 2019-06-05 16:58 | disposition home or self-care (01) ==
LOC: JERFT 15:12
DX: S05.02XA Injury of conjunctiva and corneal abrasion without foreign body, left eye, initial encounter (principal); X58.XXXA Exposure to other specified factors, initial encounter; Y93.89 Activity, other specified; Y92.038 Other place in apartment as the place of occurrence of the external cause; Y99.8 Other external cause status
CPT/HCPCS: 99281-25

== ENCOUNTER 2020-09-02 18:00 | Inpatient (IN) | payer OTHER ==
[2020-09-02 18:36] VITALS: BMI 30.7
[2020-09-02] MEDS ORDERED: BETAMET ACET/BETAMET NA PH 30 MG/5 ML VIAL ONE (18:36)
[2020-09-02] MEDS: BETAMET ACET/BETAMET NA PH 30 MG/5 ML VIAL IM SCH (18:40)
[2020-09-02 20:25] LABS: BASO % 0.5 % (0-2.0); EOS % 0.5 % (0-4.5); HEMATOCRIT 35.2 % (32.4-45.2); HEMOGLOBIN 11.7 GM/dL (10.7-15.3); LYMPH % 20.1 % (8-40); MCH 27.1 pg (25.7-33.7); MCHC 33.1 g/dl (32.0-36.0); MEAN CELL VOLUME 81.8 fl (80-96); MEAN PLT VOLUME 7.8 fl (7.5-11.1); MONO % 8.2 % (3.8-10.2); NEUT % 70.7 % (42.8-82.8); PLATELET COUNT 289 K/MM3 (134-434); RDW 15.4 % (11.6-15.6); WHITE BLOOD COUNT 6.3 K/mm3 (4.0-10.0)
[2020-09-02 20:37] LABS: INR 1.03 (0.83-1.09); PROTHROMBIN TIME (PATIENT) 12.6 SEC (9.7-13.0)
[2020-09-02 20:40] LABS: ACTIVATED PTT 28.8 SECONDS (25.2-36.5)
[2020-09-02 20:57] LABS: POTASSIUM 4.5 mmol/L (3.5-5.1)
[2020-09-02 20:58] LABS: CALCIUM 9.3 mg/dL (8.5-10.1)
[2020-09-02 20:59] LABS: BLOOD UREA NITROGEN 7.5 mg/dL (7-18)
[2020-09-02] MEDS ORDERED: ACETAMINOPHEN 325 MG TABLET (FP) PO PRN (21:00)
[2020-09-02 21:02] LABS: CREATININE 0.7 mg/dL (0.55-1.3)
[2020-09-02] MEDS ORDERED: ACETAMINOPHEN 325 MG TABLET (FP) ONE (21:21)
[2020-09-02 22:07] LABS: PH,URINE 6.5 (5.0-8.0); URINE APPEARANCE CLEAR; URINE BILIRUBIN NEGATIVE (NEGATIVE); URINE COLOR YELLOW; URINE GLUCOSE (UA) NEGATIVE (NEGATIVE); URINE KETONE 1+ (NEGATIVE); URINE LEUK ESTERASE NEGATIVE (NEGATIVE); URINE NITRITE NEGATIVE (NEGATIVE); URINE PROTEIN NEGATIVE (NEGATIVE); URINE UROBILINOGEN 0.2 mg/dL (0.2-1.0)
[2020-09-03] MEDS ORDERED: ELECTROLYTE-148 SOLN 1,000 ML IV SCH (03:00)
[2020-09-03] MEDS ORDERED: diphenhydrAMINE HCL 25 MG CAPSULE (FP) PO ONE (11:30)
[2020-09-03 14:17] VITALS: BP 121/71; PULSE 94; TEMP 98
[2020-09-03] MEDS: BETAMET ACET/BETAMET NA PH 30 MG/5 ML VIAL IM SCH (18:40)
== END 2020-09-03 19:25 | disposition home or self-care (01) | DRG 566 ==
LOC: JLDR 18:00
PROVIDERS: ADMIT Obstetrics & Gynecology Maternal & Fetal Medicine; ATTEND Obstetrics & Gynecology Maternal & Fetal Medicine
DX: O46.8X3 Other antepartum hemorrhage, third trimester (principal); Z3A.33 33 weeks gestation of pregnancy
CPT/HCPCS: 36415; 80048; 81003; 85025; 85610; 85730; 86780; 86850; 86900; 86901; 87086; 96372; C9803; U0003

== ENCOUNTER 2020-09-24 19:50 | Inpatient (IN) | payer OTHER ==
[2020-09-24] MEDS ORDERED: DEXTROSE 5%-LACTATED RINGERS 1,000 ML IV SCH ×3 (21:00→23:41)
[2020-09-24 21:14] LABS: EPI CELLS 17 /uL (0-25.1); HYALINE CASTS 0 /uL (0-3.1); URINE APPEARANCE CLOUDY; URINE BACTERIA 892 /uL (0-1359); URINE BILIRUBIN NEGATIVE (NEGATIVE); URINE COLOR YELLOW; URINE GLUCOSE (UA) NEGATIVE (NEGATIVE); URINE KETONE NEGATIVE (NEGATIVE); URINE LEUK ESTERASE 2+ (NEGATIVE); URINE NITRITE NEGATIVE (NEGATIVE); URINE PROTEIN NEGATIVE (NEGATIVE); URINE RBC 11 /uL (0-23.9); URINE UROBILINOGEN 0.2 mg/dL (0.2-1.0); URINE WBC 301 /uL (0-25.8)
[2020-09-24] MEDS ORDERED: ACETAMINOPHEN INJECTION 100 ML IVPB ONE (21:17)
[2020-09-24] MEDS ORDERED: ACETAMINOPHEN 1000 MG/100 ML BAG IVPB ONE (21:28)
[2020-09-24 23:57] VITALS: BMI 30.7
[2020-09-25] MEDS ORDERED: CEFAZOLIN 2 GM/D5W 2 GM/50 ML ML IVPB ONE ×3 (00:12→09:49)
[2020-09-25] MEDS ORDERED: ONDANSETRON 4 MG/2 ML VIAL ONE ×2 (00:12→11:20)
[2020-09-25] MEDS ORDERED: ONDANSETRON INJECTION 4 MG in SODIUM CHLORIDE 50 ML IVPUSH ONE (00:30)
[2020-09-25 01:16] LABS: BASO % 0.1 % (0-2.0); EOS % 0.1 % (0-4.5); HEMATOCRIT 33.8 % (32.4-45.2); HEMOGLOBIN 11.1 GM/dL (10.7-15.3); LYMPH % 6.5 % (8-40); MCH 26.7 pg (25.7-33.7); MEAN PLT VOLUME 8.2 fl (7.5-11.1); MONO % 5.5 % (3.8-10.2); NEUT % 87.8 % (42.8-82.8); PLATELET COUNT 258 K/MM3 (134-434); RBC 4.17 M/mm3 (3.60-5.2); RDW 15.9 % (11.6-15.6); WHITE BLOOD COUNT 20.5 K/mm3 (4.0-10.0)
[2020-09-25 01:26] LABS: INR 1.07 (0.83-1.09); PROTHROMBIN TIME (PATIENT) 12.9 SEC (9.7-13.0)
[2020-09-25 01:29] LABS: ACTIVATED PTT 30.2 SECONDS (25.2-36.5)
[2020-09-25] MEDS: CEFAZOLIN 2 GM/D5W 2 GM/50 ML ML IVPB SCH ×4 (02:15→17:37)
[2020-09-25 02:57] LABS: BLOOD UREA NITROGEN 7.2 mg/dL (7-18); CALCIUM 9.2 mg/dL (8.5-10.1); CREATININE 0.7 mg/dL (0.55-1.3)
[2020-09-25 04:20] LABS: ANISOCYTOSIS 2+; MACROCYTOSIS 0; PLATELET ESTIMATE NORMAL
[2020-09-25] MEDS ORDERED: CITRIC ACID/SODIUM CITRATE 30 ML UNIT-DOSE CUP PO ONE (11:58)
[2020-09-25] MEDS ORDERED: ONDANSETRON 4 MG/2 ML VIAL IVPB ONE ×2 (12:00→12:30)
[2020-09-25] MEDS: DEXTROSE 5%-LACTATED RINGERS 1,000 ML IV SCH ×3 (15:01→18:44)
[2020-09-25] MEDS: METOCLOPRAMIDE HCL 10 MG TABLET (FP) PO SCH (17:18)
[2020-09-25] MEDS ORDERED: ACETAMINOPHEN 325 MG TABLET (FP) ONE (17:33)
[2020-09-25] MEDS: ACETAMINOPHEN 325 MG TABLET (FP) PO PRN (17:40)
[2020-09-26] MEDS: CEFAZOLIN 2 GM/D5W 2 GM/50 ML ML IVPB SCH ×2 (01:09→09:55)
[2020-09-26] MEDS: METOCLOPRAMIDE HCL 10 MG TABLET (FP) PO SCH ×4 (01:28→19:52)
[2020-09-26] MEDS: ACETAMINOPHEN 325 MG TABLET (FP) PO PRN (01:30)
[2020-09-26 08:00] LABS: BASO % 0.4 % (0-2.0); EOS % 0.7 % (0-4.5); HEMATOCRIT 33.7 % (32.4-45.2); LYMPH % 13.5 % (8-40); MCH 26.8 pg (25.7-33.7); MCHC 32.7 g/dl (32.0-36.0); MEAN CELL VOLUME 81.8 fl (80-96); MEAN PLT VOLUME 7.8 fl (7.5-11.1); MONO % 7.6 % (3.8-10.2); NEUT % 77.8 % (42.8-82.8); PLATELET COUNT 224 K/MM3 (134-434); RBC 4.12 M/mm3 (3.60-5.2); RDW 16.2 % (11.6-15.6)
[2020-09-26 08:19] LABS: BLOOD UREA NITROGEN 6.7 mg/dL (7-18); CALCIUM 8.4 mg/dL (8.5-10.1)
[2020-09-26 08:22] LABS: CREATININE 0.6 mg/dL (0.55-1.3)
[2020-09-26 08:24] LABS: BILIRUBIN,TOTAL 0.4 mg/dL (0.2-1); TOT PROT 5.4 g/dl (6.4-8.2)
[2020-09-26] MEDS ORDERED: CITRIC ACID/SODIUM CITRATE 30 ML UNIT-DOSE CUP PO PRN (11:33)
[2020-09-26] MEDS: DEXTROSE 5%-LACTATED RINGERS 1,000 ML IV SCH (19:52)
[2020-09-26] MEDS: BISACODYL 10 MG SUPP.RECT PR PRN (21:41)
[2020-09-27] MEDS: METOCLOPRAMIDE HCL 10 MG TABLET (FP) PO SCH ×3 (06:05→16:32)
[2020-09-27] MEDS ORDERED: morphine SULFATE/Preservative Free 0.5 MG/ML (1cc Syringe) ONE (08:12)
[2020-09-27] MEDS ORDERED: SUCCINYLCHOLINE CHLORIDE 200 MG/10 ML SYRINGE ONE (08:13)
[2020-09-27] MEDS ORDERED: PROPOFOL 20 ML ONE (08:13)
[2020-09-27] MEDS ORDERED: ePHEDrine SULFATE 50 MG/1 ML AMPULE ONE (08:13)
[2020-09-27 09:01] LABS: INR 0.96 (0.83-1.09); PROTHROMBIN TIME (PATIENT) 11.8 SEC (9.7-13.0)
[2020-09-27 09:03] LABS: ACTIVATED PTT 29.2 SECONDS (25.2-36.5)
[2020-09-27 09:13] LABS: BASO % 0.3 % (0-2.0); EOS % 0.8 % (0-4.5); HEMATOCRIT 33.1 % (32.4-45.2); LYMPH % 15.1 % (8-40); MCH 27.1 pg (25.7-33.7); MCHC 33.4 g/dl (32.0-36.0); MEAN CELL VOLUME 81.2 fl (80-96); MEAN PLT VOLUME 8.2 fl (7.5-11.1); MONO % 7.5 % (3.8-10.2); NEUT % 76.3 % (42.8-82.8); PLATELET COUNT 257 K/MM3 (134-434); RBC 4.08 M/mm3 (3.60-5.2); RDW 15.9 % (11.6-15.6); WHITE BLOOD COUNT 10.8 K/mm3 (4.0-10.0)
[2020-09-27] MEDS ORDERED: MIDAZOLAM HCL 2 MG/2 ML SINGLE DOSE VIAL ONE (09:22)
[2020-09-27 09:28] LABS: CALCIUM 8.5 mg/dL (8.5-10.1)
[2020-09-27 09:28] LABS: CORD BASE EXCESS -4.1 mmol/L (0-2); CORD HCO3 23.3 mmHg (20-29); CORD PCO2 50.8 mmHg (30-78); CORD pH 7.279 (7.14-7.44)
[2020-09-27 09:29] LABS: ALBUMIN 2.1 g/dl (3.4-5.0); BLOOD UREA NITROGEN 7.1 mg/dL (7-18)
[2020-09-27 09:31] LABS: CORD BASE EXCESS -5.8 mmol/L (0-2); CORD HCO3 23.1 mmHg (20-29); CORD PCO2 59.2 mmHg (30-78); CORD pH 7.21 (7.14-7.44)
[2020-09-27 09:32] LABS: CREATININE 0.6 mg/dL (0.55-1.3)
[2020-09-27 09:33] LABS: BILIRUBIN,TOTAL 0.4 mg/dL (0.2-1); TOT PROT 5.5 g/dl (6.4-8.2)
[2020-09-27 10:08] LABS: POC NITRAZINE POS
[2020-09-27] MEDS ORDERED: morphine SULFATE/PF 1 MG/2 ML (2cc Syringe - QUVA) EP ONE (10:33)
[2020-09-27] MEDS ORDERED: ACETAMINOPHEN 1000 MG/100 ML BAG IVPB ONE (10:37)
[2020-09-27] MEDS ORDERED: ACETAMINOPHEN INJECTION 100 ML IVPB ONE (11:19)
[2020-09-27] MEDS ORDERED: OXYTOCIN 20 UNITS in 0.9% NS 20 UNIT/1,000 ML INFUS.BAG IV ONE (11:19)
[2020-09-27] MEDS: OXYTOCIN 20 UNITS in 0.9% NS 20 UNIT/1,000 ML INFUS.BAG IV SCH (11:40)
[2020-09-27] MEDS ORDERED: METOCLOPRAMIDE HCL INJECTION 10 MG/2 ML VIAL ONE (11:46)
[2020-09-27] MEDS: ONDANSETRON 4 MG/2 ML VIAL IVPUSH PRN ×2 (16:12→23:20)
[2020-09-27] MEDS: DEXTROSE 5%-LACTATED RINGERS 1,000 ML IV SCH (19:25)
[2020-09-27] MEDS: oxyCODONE HCL 5 MG TABLET PO PRN (20:02)
[2020-09-27] MEDS: ACETAMINOPHEN 325 MG TABLET (FP) PO PRN (20:02)
[2020-09-27] MEDS: SIMETHICONE 80 MG TAB.CHEW (FP) PO PRN (20:03)
[2020-09-28] MEDS: SIMETHICONE 80 MG TAB.CHEW (FP) PO PRN ×3 (01:57→21:38)
[2020-09-28] MEDS: ACETAMINOPHEN 325 MG TABLET (FP) PO PRN ×5 (01:57→21:36)
[2020-09-28] MEDS: oxyCODONE HCL 5 MG TABLET PO PRN ×5 (01:57→21:37)
[2020-09-28] MEDS: METOCLOPRAMIDE HCL 10 MG TABLET (FP) PO SCH ×3 (07:30→17:07)
[2020-09-28] MEDS ORDERED: DIPHTH,PERTUSS(ACELL),TET 0.5 ML DISP.SYRIN IM ONE (10:00)
[2020-09-28] MEDS ORDERED: FLU VACCINE (FLULAVAL) PF 60 MCG/0.5 ML SYRINGE 2020-2021 IM ONE (10:00)
[2020-09-28 10:37] LABS: BASO % 0.2 % (0-2.0); EOS % 0.5 % (0-4.5); HEMATOCRIT 26.4 % (32.4-45.2); HEMOGLOBIN 8.8 GM/dL (10.7-15.3); LYMPH % 10.7 % (8-40); MCH 27.3 pg (25.7-33.7); MCHC 33.3 g/dl (32.0-36.0); MEAN PLT VOLUME 7.8 fl (7.5-11.1); MONO % 5.4 % (3.8-10.2); NEUT % 83.2 % (42.8-82.8); PLATELET COUNT 229 K/MM3 (134-434); RBC 3.22 M/mm3 (3.60-5.2); RDW 16.1 % (11.6-15.6)
[2020-09-28] MEDS: HEPARIN NA (PORCINE) 5,000 UNITS/ML 1ML VIAL SQ SCH ×2 (10:39→21:38)
[2020-09-29] MEDS: oxyCODONE HCL 5 MG TABLET PO PRN ×5 (02:44→20:19)
[2020-09-29] MEDS: ACETAMINOPHEN 325 MG TABLET (FP) PO PRN ×5 (02:45→20:19)
[2020-09-29] MEDS: SIMETHICONE 80 MG TAB.CHEW (FP) PO PRN ×5 (02:45→20:20)
[2020-09-29] MEDS: METOCLOPRAMIDE HCL 10 MG TABLET (FP) PO SCH ×3 (06:39→15:49)
[2020-09-29] MEDS: HEPARIN NA (PORCINE) 5,000 UNITS/ML 1ML VIAL SQ SCH ×2 (10:19→22:00)
[2020-09-29] MEDS: BISACODYL 10 MG SUPP.RECT PR PRN (22:02)
[2020-09-30] MEDS: oxyCODONE HCL 5 MG TABLET PO PRN ×4 (02:23→19:47)
[2020-09-30] MEDS: ACETAMINOPHEN 325 MG TABLET (FP) PO PRN ×3 (02:23→13:55)
[2020-09-30] MEDS: SIMETHICONE 80 MG TAB.CHEW (FP) PO PRN ×2 (02:24→08:58)
[2020-09-30] MEDS: METOCLOPRAMIDE HCL 10 MG TABLET (FP) PO SCH ×3 (06:40→16:42)
[2020-09-30 07:46] LABS: BASO % 0.4 % (0-2.0); EOS % 0.9 % (0-4.5); HEMATOCRIT 26.7 % (32.4-45.2); HEMOGLOBIN 8.9 GM/dL (10.7-15.3); LYMPH % 16.6 % (8-40); MCH 27.1 pg (25.7-33.7); MCHC 33.5 g/dl (32.0-36.0); MEAN CELL VOLUME 80.9 fl (80-96); NEUT % 75.1 % (42.8-82.8); PLATELET COUNT 313 K/MM3 (134-434); RDW 15.5 % (11.6-15.6); WHITE BLOOD COUNT 9.5 K/mm3 (4.0-10.0)
[2020-09-30] MEDS ORDERED: DOCUSATE SODIUM 100 MG CAPSULE (FP) PO PRN (07:52)
[2020-09-30] MEDS: FERROUS SO4 325 MG TABLET (FP) PO SCH ×2 (08:56→16:42)
[2020-09-30] MEDS: HEPARIN NA (PORCINE) 5,000 UNITS/ML 1ML VIAL SQ SCH ×2 (10:37→23:11)
[2020-09-30 11:25] LABS: ANISOCYTOSIS 0; MACROCYTOSIS 0; PLATELET ESTIMATE NORMAL
[2020-09-30] MEDS ORDERED: IBUPROFEN 600 MG TABLET (FP) PO PRN ×2 (19:21→19:24)
[2020-10-01] MEDS: oxyCODONE HCL 5 MG TABLET PO PRN ×2 (02:09→10:05)
[2020-10-01] MEDS: SIMETHICONE 80 MG TAB.CHEW (FP) PO PRN (02:10)
[2020-10-01] MEDS: OXYTOCIN 20 UNITS in 0.9% NS 20 UNIT/1,000 ML INFUS.BAG IV SCH (02:12)
[2020-10-01] MEDS: DEXTROSE 5%-LACTATED RINGERS 1,000 ML IV SCH (02:13)
[2020-10-01 02:38] VITALS: PULSE 82
[2020-10-01] MEDS ORDERED: NIFEdipine E.R. 30 MG TABLET PO SCH (02:45)
[2020-10-01] MEDS ORDERED: NIFEdipine E.R. 30 MG TABLET PO ONE (03:00)
[2020-10-01] MEDS: METOCLOPRAMIDE HCL 10 MG TABLET (FP) PO SCH ×2 (06:02→10:59)
[2020-10-01 09:21] VITALS: TEMP 98
[2020-10-01] MEDS: HEPARIN NA (PORCINE) 5,000 UNITS/ML 1ML VIAL SQ SCH (10:05)
[2020-10-01] MEDS: FERROUS SO4 325 MG TABLET (FP) PO SCH (10:06)
[2020-10-01 10:20] VITALS: BP 127/85
[2020-10-02] MEDS ORDERED: NIFEdipine E.R. 30 MG TABLET PO SCH (10:00)
== END 2020-10-01 13:50 | disposition home or self-care (01) | DRG 540 ==
LOC: JDEL 19:50 → JLDR 23:20 → J3W 09-25 12:40 → JLDR 09-27 07:00 → J3W 09-27 12:09
PROVIDERS: ADMIT Obstetrics & Gynecology Maternal & Fetal Medicine; ATTEND Obstetrics & Gynecology Maternal & Fetal Medicine
PROC: 10D00Z1 Extraction of Products of Conception, Low, Open Approach (ICD-10-PCS; principal; 2020-09-27)
PROC: 0UL70ZZ Occlusion of Bilateral Fallopian Tubes, Open Approach (ICD-10-PCS; 2020-09-27)
DX: O46.93 Antepartum hemorrhage, unspecified, third trimester (principal); O45.93 Premature separation of placenta, unspecified, third trimester; O16.3 Unspecified maternal hypertension, third trimester; O23.43 Unspecified infection of urinary tract in pregnancy, third trimester; O42.913 Preterm premature rupture of membranes, unspecified as to length of time between rupture and onset of labor, third trimester; O34.219 Maternal care for unspecified type scar from previous cesarean delivery; O21.0 Mild hyperemesis gravidarum; Z3A.36 36 weeks gestation of pregnancy; Z37.0 Single live birth; Z30.2 Encounter for sterilization
CPT/HCPCS: 36415; 36600; 59025; 80048; 80053; 81003; 82803; 83986-QW; 85025; 85610; 85730; 86780; 86850; 86900; 86901; 86922; 87340; 90715; C9803; J0131; J1644; Q2036; U0003